=== PATIENT | female | born 1975 | race Caucasian/White ===

== ENCOUNTER 2016-08-27 08:20 | Emergency (ER) | payer MEDICAID ==
[2016-08-27 08:35] VITALS: BP 120/58
--- NOTE | 2016-08-27 09:00 | UC ---
Respiratory Complaint HPI - HPI Summary HPI Summary: cough x 1 day + nasal congestion , no fever, no chills - History of Current Complaint Chief Complaint: UCRespiratory Stated Complaint: COUGH,CHILLS Time Seen by Provider: 08/27/16 08:44 Hx Obtained From: Patient Hx Last Menstrual Period: n/a Onset/Duration: Gradual Onset, Lasting Days - 1, Still Present Timing: Constant Severity Initially: Moderate Severity Currently: Moderate Character: Cough: Nonproductive Aggravating Factors: Exertion, Deep Breaths Alleviating Factors: Nothing Associated Signs And Symptoms: Positive: URI, Nasal Congestion. Negative: Fever , Chills - Allergies/Home Medications Allergies/Adverse Reactions: Allergies Allergy/AdvReac Type Severity Reaction Status Date / Time Tramadol Allergy Severe face Verified 05/31/13 21:46 swelling Aspirin AdvReac Nausea Verified 08/27/16 08:35 Home Medications: Home Medications Acetaminophen [Acetaminophen Extra Stren] 1,000 mg PO Q6H PRN 08/27/16 [History Confirmed 08/27/16] PMH/Surg Hx/FS Hx/Imm Hx Respiratory History Of: Reports: Asthma - Surgical History Surgical History: None - Family History Known Family History: Negative: Diabetes - Social History Alcohol Use: Occasionally Substance Use Type: None Smoking Status (MU): Never Smoked Tobacco Review of Systems Constitutional: Negative Skin: Negative Eyes: Negative ENT: Nasal Discharge Respiratory: Cough Cardiovascular: Negative Gastrointestinal: Negative All Other Systems Reviewed And Are Negative: Yes Physical Exam Triage Information Reviewed: Yes Appearance: Well-Appearing, No Pain Distress, Well-Nourished Vital Signs: Initial Vital Signs Temp 99.9 F 08/27/16 08:28 Pulse 80 08/27/16 08:28 Resp 20 08/27/16 08:28 BP 120/58 08/27/16 08:28 Pulse Ox 98 08/27/16 08:28 Vital Signs Reviewed: Yes Eyes: Positive: Conjunctiva Clear ENT: Positive: Normal ENT inspection, Hearing grossly normal, Nasal congestion, Nasal drainage, TMs normal Neck: Positive: Supple, Nontender, No Lymphadenopathy Respiratory: Positive: Chest non-tender, Lungs clear, Normal breath sounds Cardiovascular: Positive: RRR, No Murmur, Pulses Normal Abdominal Exam: Normal UC Diagnostic Evaluation - Laboratory O2 Sat by Pulse Oximetry: 98 Respiratory Course/Dx - Differential Dx/Diagnosis Provider Diagnoses: URI Discharge - Discharge Plan Condition: Stable Disposition: HOME Patient Education Materials: Upper Respiratory Infection (ED) Forms: *Work Release Referrals: Non Staff,Doctor [Primary Care Provider] - If Needed
== END 2016-08-27 09:05 | disposition home or self-care (01) ==
LOC: UCCORT 08:20
DX: J06.9 Acute upper respiratory infection, unspecified (principal); J45.909 Unspecified asthma, uncomplicated; Z88.6 Allergy status to analgesic agent; Z88.5 Allergy status to narcotic agent
CPT/HCPCS: 99201; G0463

== ENCOUNTER 2017-10-13 09:03 | Emergency (ER) | payer OTHER ==
[2017-10-13 09:33] VITALS: BP 101/70
--- NOTE | 2017-10-13 09:34 | UC ---
Respiratory Complaint HPI - HPI Summary HPI Summary: 42 yo female presents with dry cough and chest congestion for the last 3-4 days. She tells me that she feels like she has had allergies this year as she has had sinus congestion and post nasal drip - started taking zyrtec with good relief. Now feels like it has "settled" in her chest. Denies fever, chills, sore throat, SOB, chest pain, abdominal pain, n/v. - History of Current Complaint Chief Complaint: UCRespiratory Stated Complaint: CONGESTION TIGHTNESS Time Seen by Provider: 10/13/17 09:34 Hx Obtained From: Patient Hx Last Menstrual Period: unknown, mirena iud Onset/Duration: Gradual Onset Severity Currently: None Pain Intensity: 0 Character: Cough: Nonproductive - Allergies/Home Medications Allergies/Adverse Reactions: Allergies Allergy/AdvReac Type Severity Reaction Status Date / Time tramadol Allergy Swelling Verified 10/13/17 09:29 Of Face,Lips,& Throat aspirin AdvReac Nausea Verified 10/13/17 09:29 Home Medications: Home Medications Cetirizine* [ZyrTEC 10 MG TAB*] 10 mg PO DAILY 10/13/17 [History Confirmed 10/13] PMH/Surg Hx/FS Hx/Imm Hx Respiratory History: Asthma - Surgical History Surgical History: None - Family History Known Family History: Negative: Diabetes - Social History Occupation: Employed Full-time Lives: With Family Alcohol Use: Occasionally Substance Use Type: None Smoking Status (MU): Never Smoked Tobacco Review of Systems Constitutional: Negative Skin: Negative Eyes: Negative ENT: Negative Respiratory: Cough Cardiovascular: Negative Gastrointestinal: Negative Neurovascular: Negative Neurological: Negative Psychological: Negative All Other Systems Reviewed And Are Negative: Yes Physical Exam - Summary Physical Exam Summary: GENERAL: NAD. WDWN. No pain distress. SKIN: No rashes, sores, lesions, or open wounds. HEENT: Head: AT/NC Eyes: Conjunctiva clear without inflammation or discharge. Ears: Hearing grossly normal. TMs intact, no bulging, erythema, or edema. Nose: Nasal mucosa pink and moist. NTTP maxillary and frontal sinus. Throat: Posterior oropharynx without exudates, erythema, or tonsillar enlargement. Uvula midline. NECK: Supple. Nontender. No lymphadenopathy. CHEST: Mild wheezing throughout. No r/r. No accessory muscle use. Breathing comfortably and in no distress. CV: RRR. Without m/r/g. Pulses intact. Brisk cap refill. NEURO: Alert. CN II-XII grossly intact. PSYCH: Age appropriate behavior. Triage Information Reviewed: Yes Vital Signs: Initial Vital Signs Temp 97.6 F 10/13/17 09:28 Pulse 59 10/13/17 09:28 Resp 16 10/13/17 09:28 BP 101/70 10/13/17 09:28 Pulse Ox 100 10/13/17 09:28 Diagnostic Evaluation - Laboratory O2 Sat by Pulse Oximetry: 100 Respiratory Course/Dx - Course Course Of Treatment: Bronchitis - Differential Dx/Diagnosis Provider Diagnoses: Bronchitis Discharge - Sign-Out/Discharge Documenting (check all that apply): Discharge/Admit/Transfer - Discharge Plan Condition: Stable Disposition: HOME Prescriptions: Albuterol HFA INHALER* [Ventolin HFA Inhaler*] 1 - 2 puff INH Q6H PRN #1 mdi PRN Reason: Cough predniSONE TAB* [Deltasone TAB*] 50 mg PO DAILY #5 tab Patient Education Materials: Acute Bronchitis (ED) Referrals: No Primary Care Phys,NOPCP [Primary Care Provider] - Additional Instructions: If you develop a fever, shortness of breath, chest pain, new or worsening symptoms - please call your PCP or go to the ED. - Billing Disposition and Condition Condition: STABLE Disposition: Home
== END 2017-10-13 09:44 | disposition home or self-care (01) ==
LOC: UCCORT 09:03
DX: J40 Bronchitis, not specified as acute or chronic (principal); Z88.6 Allergy status to analgesic agent
CPT/HCPCS: 99212; G0463

== ENCOUNTER 2017-10-20 16:39 | Emergency (ER) | payer OTHER ==
[2017-10-20 17:01] VITALS: BP 109/60
--- NOTE | 2017-10-20 17:01 | UC ---
Back Pain HPI - HPI Summary HPI Summary: Patient presents complaining of an ache across her low back for the past 3 days. With this, she notes some frequency and urgency with urination but denies any burning. Patient also notes a little bit of odor to her urine. She has no associated fever or chills or abdominal pain. She denies any associated numbness tingling or weakness to her arms or legs as well as loss of bowel or bladder control. She also denies any saddle anesthesia. she has pressure over her bladder but denies pain. she has had kidney stones but notes this is nothing like that. - History of Current Complaint Hx Obtained From: Patient Hx Last Menstrual Period: unknown, mirena iud Onset/Duration: Gradual Onset Timing: Constant Aggravating Factor(s): Nothing Alleviating Factor(s): Nothing Associated Signs And Symptoms: Negative: Fever, Weakness, Numbness, Tingling, Abdominal Pain, Flank Pain, Bladder Incontinence, Bowel Incontinence - Risk Factors AAA Risk Factors: Negative TAD Risk Factors: Negative Cauda Equina Risk Factors: Negative Epidural Abscess Risk Factors: Negative <Mica Sosa - Last Filed: 10/20/17 16:50> <Theresa Ramirez - Last Filed: 10/20/17 19:35> - History of Current Complaint Stated Complaint: LOWER BACK PAIN Time Seen by Provider: 10/20/17 16:48 - Allergies/Home Medications Allergies/Adverse Reactions: Allergies Allergy/AdvReac Type Severity Reaction Status Date / Time erythromycin base Allergy GI Upset Verified 10/20/17 16:58 tramadol Allergy Swelling Verified 10/13/17 09:29 Of Face,Lips,& Throat aspirin AdvReac Nausea Verified 10/13/17 09:29 PMH/Surg Hx/FS Hx/Imm Hx - Additional Past Medical History Additional PMH: allergies, uti Respiratory History: Asthma, Bronchitis GI/ History: Kidney Stones - Surgical History Surgical History: None - Family History Known Family History: Negative: Diabetes - Social History Occupation: Employed Full-time Lives: With Family Alcohol Use: Occasionally Substance Use Type: None Smoking Status (MU): Never Smoked Tobacco - Immunization History Vaccination Up to Date: Yes <Mica Sosa - Last Filed: 10/20/17 16:50> Review of Systems Constitutional: Negative Skin: Negative Eyes: Negative ENT: Negative Respiratory: Negative Cardiovascular: Negative Gastrointestinal: Negative Genitourinary: Frequency, Urgency Motor: Negative Neurovascular: Negative Musculoskeletal: Other: - low back ache Neurological: Negative Psychological: Negative Is Patient Immunocompromised?: No All Other Systems Reviewed And Are Negative: Yes <Mica Sosa - Last Filed: 10/20/17 16:50> Physical Exam Triage Information Reviewed: Yes Appearance: Well-Appearing Vital Signs Reviewed: Yes Eyes: Positive: Conjunctiva Clear ENT: Positive: Normal ENT inspection Neck: Positive: Supple, Nontender, No Lymphadenopathy Respiratory: Positive: Lungs clear, Normal breath sounds Cardiovascular: Positive: RRR, No Murmur Abdomen Description: Positive: Nontender, No Organomegaly, Soft. Negative: CVA Tenderness (R), CVA Tenderness (L), Distended, Guarding Bowel Sounds: Positive: Present Musculoskeletal: Positive: Other: - Back exam: No gross deformity swelling or discoloration. Cervical, thoracic and lumbar spine are nontender to palpation. Patient has full range range of motion throughout her back and neck without difficulty. She has 5 out of 5 strength and 2+ reflexes 4. No saddle anesthesia. Neurological: Positive: Alert Psychological: Positive: Age Appropriate Behavior Skin Exam: Normal <Mica Sosa - Last Filed: 10/20/17 16:50> Vital Signs: Initial Vital Signs Temp 99.0 F 10/20/17 16:54 Pulse 65 10/20/17 16:54 Resp 15 10/20/17 16:54 BP 109/60 10/20/17 16:54 Pulse Ox 100 10/20/17 16:54 <Theresa Ramirez - Last Filed: 10/20/17 19:35> Diagnostics - Laboratory Diagnostic Studies Completed/Ordered: u/a + for blood and leukocytes and culture is pending. <Mica Sosa - Last Filed: 10/20/17 16:50> Back Pain Course/Dx - Course Course Of Treatment: back exam is unremarkable. u/a + for blood and leukocytes with culture pending. hcg is neg. will tx for uti with close f/u. - Differential Dx/Diagnosis Provider Diagnoses: Low back ache. Urinary urgency/frequency. possible uti. <Mica Sosa - Last Filed: 10/20/17 16:50> Discharge - Sign-Out/Discharge Documenting (check all that apply): Discharge/Admit/Transfer - Billing Disposition and Condition Condition: STABLE Disposition: Home <Mica Sosa - Last Filed: 10/20/17 16:50> - Billing Disposition and Condition Condition: STABLE Disposition: Home <Theresa Ramirze - Last Filed: 10/20/17 19:35> - Discharge Plan Condition: Stable Disposition: HOME Prescriptions: Nitrofurantoin Monohyd/M-Cryst [Macrobid 100 mg Capsule] 100 mg PO BID #10 cap Patient Education Materials: Urinary Tract Infection in Women (ED), Back Pain ( ED) Referrals: [facility] [place] [facility] [Outside] Additional Instructions: call physician referral in am whom will assist you with a f/u pcp. you should be seen in 5 days or sooner if worse. go to ER for worsening. Attestation Statement User Type: Provider - I was available for consult. This patient was seen by the LORRIE. The patient was not presented to, seen by, or examined by me. -Amarij <Theresa Ramirez - Last Filed: 10/20/17 19:35>
--- NOTE | 2017-10-23 10:49 | UC ---
- Progress Note Progress Note: neg culture can stop antibiotics recheck prn Discharge - Sign-Out/Discharge Documenting (check all that apply): Discharge/Admit/Transfer - Discharge Plan Condition: Stable Disposition: HOME Prescriptions: Nitrofurantoin Monohyd/M-Cryst [Macrobid 100 mg Capsule] 100 mg PO BID #10 cap Patient Education Materials: Urinary Tract Infection in Women (ED), Back Pain ( ED) [place]errals: [facility] [place] [facility] [Outside] Additional Instructions: call physician referral in am whom will assist you with a f/u pcp. you should be seen in 5 days or sooner if worse. go to ER for worsening. - Billing Disposition and Condition Condition: STABLE Disposition: Home
== END 2017-10-20 17:38 | disposition home or self-care (01) ==
LOC: UCCORT 16:39
DX: M54.5 Low back pain (principal); R35.0 Frequency of micturition; R39.15 Urgency of urination; Z88.5 Allergy status to narcotic agent; Z88.6 Allergy status to analgesic agent
CPT/HCPCS: 81003; 84702; 87086; 99212; G0463

== ENCOUNTER 2017-12-12 09:57 | Emergency (ER) | payer OTHER ==
[2017-12-12 10:15] VITALS: BP 110/48
[2017-12-12] MEDS ORDERED: Acetaminophen ADULT LIQ* 650 MG/20.3 ML UDC PO ONE (10:21)
--- NOTE | 2017-12-12 10:38 | UC ---
Throat Pain/Nasal Abhijeet HPI - HPI Summary HPI Summary: Pt c/o sudden onset of ST, fever generalized malaise X 1 day. - History of Current Complaint Chief Complaint: UCGeneralIllness Stated Complaint: SORE THROAT Time Seen by Provider: 12/12/17 10:08 Hx Obtained From: Patient Hx Last Menstrual Period: Mirena IUD ?: No Onset/Duration: Sudden Onset Severity: Moderate Pain Intensity: 8 Cough: None Associated Signs & Symptoms: Positive: Dysphagia, Fever - Epiglottits Risk Factors Epiglottis Risk Factors: Sudden Onset - Allergies/Home Medications Allergies/Adverse Reactions: Allergies Allergy/AdvReac Type Severity Reaction Status Date / Time tramadol Allergy Swelling Verified 12/12/17 10:11 Of Face,Lips,& Throat aspirin AdvReac Nausea Verified 12/12/17 10:11 erythromycin base AdvReac Nausea Verified 12/12/17 10:11 Home Medications: Home Medications Levonorgestrel (Iud) [Mirena IUD] 20 mcg IU ONCE 12/12/17 [History Confirmed ] PMH/Surg Hx/FS Hx/Imm Hx Previously Healthy: Yes - Surgical History Surgical History: None - Family History Known Family History: Negative: Diabetes - Social History Occupation: Employed Full-time Lives: With Family Alcohol Use: Occasionally Substance Use Type: None Smoking Status (MU): Never Smoked Tobacco Have You Smoked in the Last Year: No - Immunization History Vaccination Up to Date: Yes Review of Systems Constitutional: Fever, Chills Skin: Negative Eyes: Negative ENT: Sore Throat Respiratory: Negative Cardiovascular: Negative Gastrointestinal: Negative Genitourinary: Negative Motor: Negative Neurovascular: Negative Musculoskeletal: Myalgia Neurological: Headache Psychological: Negative Is Patient Immunocompromised?: No All Other Systems Reviewed And Are Negative: Yes Physical Exam Triage Information Reviewed: Yes Appearance: Ill-Appearing Vital Signs: Initial Vital Signs Temp 99.1 F 12/12/17 10:09 Pulse 83 12/12/17 10:09 Resp 17 12/12/17 10:09 BP 110/48 12/12/17 10:09 Pulse Ox 97 12/12/17 10:09 Vital Signs Reviewed: Yes Eye Exam: Normal ENT: Positive: Tonsillar swelling, Tonsillar exudate Dental Exam: Normal Neck exam: Normal Respiratory Exam: Normal Cardiovascular Exam: Normal Musculoskeletal Exam: Normal Neurological Exam: Normal Psychological Exam: Normal Skin Exam: Normal Diagnostics - Laboratory Diagnostic Studies Completed/Ordered: rapid strep: positive Throat Pain/Nasal Course/Dx - Differential Dx/Diagnosis Differential Diagnosis/HQI/PQRI: Pharyngitis, Tonsillitis Provider Diagnoses: strep throat Discharge - Sign-Out/Discharge Documenting (check all that apply): Patient Departure - Discharge Plan Condition: Stable Disposition: HOME Prescriptions: Amoxicillin PO (*) [Amoxicillin 400 MG/5 ML SUSP*] 7 ml PO Q12H #140 bottle Patient Education Materials: Strep Throat (ED) Referrals: [facility] [place] [facility] [Outside] - If Needed No Primary Care Phys,NOPCP [Primary Care Provider] - - Billing Disposition and Condition Condition: STABLE Disposition: Home
== END 2017-12-12 10:46 | disposition home or self-care (01) ==
LOC: UCCORT 09:57
DX: J02.0 Streptococcal pharyngitis (principal); Z88.1 Allergy status to other antibiotic agents; Z88.6 Allergy status to analgesic agent; Z88.5 Allergy status to narcotic agent
CPT/HCPCS: 87651; 99212; A9270-GY; G0463

== ENCOUNTER 2018-03-09 12:11 | Emergency (ER) | payer OTHER ==
--- NOTE | 2018-03-09 13:45 | UC ---
Respiratory Complaint HPI - HPI Summary HPI Summary: 42 yo female presents with sinus pain/pressure/congestion, post nasal drip, and dry cough for the last 5 days. She tells me that she has a history of asthma and when her "sinuses go to her chest" her symptoms get worse. She has not taken anything OTC. Does have an albuterol inhaler, but has not needed it. Denies fever, chills, sore throat, SOB, chest pain. - History of Current Complaint Stated Complaint: COUGH Time Seen by Provider: 03/09/18 13:44 Hx Obtained From: Patient Hx Last Menstrual Period: Mirena IUD Onset/Duration: Gradual Onset Severity Initially: Moderate Severity Currently: Moderate Pain Intensity: 6 Pain Scale Used: 0-10 Numeric - Allergies/Home Medications Allergies/Adverse Reactions: Allergies Allergy/AdvReac Type Severity Reaction Status Date / Time tramadol Allergy Swelling Verified 03/09/18 14:12 Of Face,Lips,& Throat aspirin AdvReac Nausea Verified 03/09/18 14:12 erythromycin base AdvReac Nausea Verified 03/09/18 14:12 PMH/Surg Hx/FS Hx/Imm Hx - Additional Past Medical History Additional PMH: None - Surgical History Surgical History: None - Family History Known Family History: Negative: Diabetes - Social History Occupation: Employed Full-time Lives: With Family Alcohol Use: Occasionally Substance Use Type: None Smoking Status (MU): Never Smoked Tobacco Have You Smoked in the Last Year: No - Immunization History Vaccination Up to Date: Yes Review of Systems All Other Systems Reviewed And Are Negative: Yes Constitutional: Positive: Negative Skin: Positive: Negative Eyes: Positive: Negative ENT: Positive: Nasal Discharge, Sinus Congestion, Sinus Pain/Tenderness Respiratory: Positive: Cough Cardiovascular: Positive: Negative Gastrointestinal: Positive: Negative Neurovascular: Positive: Negative Neurological: Positive: Negative Psychological: Positive: Negative Physical Exam - Summary Physical Exam Summary: GENERAL: NAD. WDWN. No pain distress. SKIN: No rashes, sores, lesions, or open wounds. HEENT: Head: AT/NC Eyes: Conjunctiva clear without inflammation or discharge. Ears: Hearing grossly normal. TMs intact, no bulging, erythema, or edema. Nose: Nasal mucosa pink and moist. TTP maxillary and frontal sinus. Throat: Posterior oropharynx without exudates, erythema, or tonsillar enlargement. Uvula midline. NECK: Supple. Nontender. No lymphadenopathy. CHEST: Scant wheezing throughout. No r/r. No accessory muscle use. Breathing comfortably and in no distress. CV: RRR. Without m/r/g. Pulses intact. Cap refill <2seconds NEURO: Alert. PSYCH: Age appropriate behavior. Triage Information Reviewed: Yes Vital Signs: Vital Signs: Temp Pulse Resp BP Pulse Ox 97.9 F 59 18 118/65 100 03/09/18 14:10 03/09/18 14:10 03/09/18 14:10 03/09/18 14:10 03/09/18 14:10 Vital Signs Reviewed: Yes Respiratory Course/Dx - Course Course Of Treatment: Sinusitis and mild bronchitis. She has had zpak in the past with good results. Will rx for albuterol, tessalon, and zpak. - Differential Dx/Diagnosis Provider Diagnoses: Sinusitis. Bronchitis Discharge - Sign-Out/Discharge Documenting (check all that apply): Patient Departure All imaging exams completed and their final reports reviewed: No Studies - Discharge Plan Condition: Stable Disposition: HOME Prescriptions: Albuterol HFA INHALER* [Ventolin HFA Inhaler*] 1 - 2 puff INH Q6H PRN #1 mdi PRN Reason: Sob/Wheezing Azithromycin TAB* [Zithromax TAB (Z-JOHN) 250 mg #6 tabs] 2 tab PO .TODAY, THEN 1 DAILY #1 john Benzonatate CAP* [Tessalon 100 MG CAP*] 100 mg PO TID PRN #21 cap PRN Reason: Cough Patient Education Materials: Sinusitis (ED), Acute Bronchitis (ED) Forms: *Work Release Referrals: No Primary Care Phys,NOPCP [Primary Care Provider] - Additional Instructions: If you develop a fever, shortness of breath, chest pain, new or worsening symptoms - please call your PCP or go to the ED. Your blood pressure was high at todays visit. Please see your primary provider within 4 weeks for recheck and re-evaluation. - Billing Disposition and Condition Condition: STABLE Disposition: Home
--- NOTE | 2018-03-09 13:49 | UC ---
UC General HPI - History of Current Complaint Stated Complaint: COUGH Time Seen by Provider: 03/09/18 13:44 Hx Last Menstrual Period: Mirena IUD - Allergy/Home Medications Allergies/Adverse Reactions: Allergies Allergy/AdvReac Type Severity Reaction Status Date / Time tramadol Allergy Swelling Verified 12/12/17 10:11 Of Face,Lips,& Throat aspirin AdvReac Nausea Verified 12/12/17 10:11 erythromycin base AdvReac Nausea Verified 12/12/17 10:11 PMH/Surg Hx/FS Hx/Imm Hx - Surgical History Surgical History: None - Family History Known Family History: Negative: Diabetes - Social History Alcohol Use: Occasionally Substance Use Type: None Smoking Status (MU): Never Smoked Tobacco Have You Smoked in the Last Year: No - Immunization History Vaccination Up to Date: Yes Discharge - Discharge Plan Referrals: No Primary Care Phys,NOPCP [Primary Care Provider] -
[2018-03-09 14:12] VITALS: BP 118/65
== END 2018-03-09 14:14 | disposition home or self-care (01) ==
LOC: UCCORT 12:11
DX: J32.9 Chronic sinusitis, unspecified (principal); J40 Bronchitis, not specified as acute or chronic; Z88.1 Allergy status to other antibiotic agents; Z88.6 Allergy status to analgesic agent; Z88.5 Allergy status to narcotic agent
CPT/HCPCS: 99212; G0463

== ENCOUNTER 2018-04-27 09:36 | Emergency (ER) | payer OTHER ==
[2018-04-27 10:11] VITALS: BP 110/60
--- NOTE | 2018-04-27 11:11 | UC ---
Throat Pain/Nasal Abhijeet HPI - HPI Summary HPI Summary: Patient presents to urgent care reporting sore throat. Patient states it started this morning. Patient states yesterday she had some nasal congestion ear fullness and upper back achiness. Patient has not taken any medications. Patient states that her son had nasal congestion and cough earlier this week. Patient is not inial, otherwise. Patient without any fevers or chills. Patient 's been drinking fluids but decreased appetite. No other complaints. Patient' s medications reviewed this visit. Patient states she is not . Medications reviewed this visit - History of Current Complaint Chief Complaint: UCGeneralIllness Stated Complaint: SORE THROAT Time Seen by Provider: 04/27/18 11:09 Hx Obtained From: Patient Hx Last Menstrual Period: unknown, mirena ?: No Onset/Duration: Gradual Onset Pain Intensity: 5 Pain Scale Used: 0-10 Numeric - Allergies/Home Medications Allergies/Adverse Reactions: Allergies Allergy/AdvReac Type Severity Reaction Status Date / Time tramadol Allergy Swelling Verified 03/09/18 14:12 Of Face,Lips,& Throat aspirin AdvReac Nausea Verified 03/09/18 14:12 erythromycin base AdvReac Nausea Verified 03/09/18 14:12 PMH/Surg Hx/FS Hx/Imm Hx Previously Healthy: Yes - Surgical History Surgical History: None - Family History Known Family History: Positive: Non-Contributory Negative: Diabetes - Social History Lives: With Family Alcohol Use: Occasionally Substance Use Type: None Smoking Status (MU): Never Smoked Tobacco Have You Smoked in the Last Year: No - Immunization History Vaccination Up to Date: Yes Review of Systems All Other Systems Reviewed And Are Negative: Yes Constitutional: Positive: Negative Skin: Positive: Negative ENT: Positive: Nasal Discharge, Sinus Congestion Respiratory: Positive: Negative Cardiovascular: Positive: Negative Gastrointestinal: Positive: Negative Genitourinary: Positive: Negative Physical Exam - Summary Physical Exam Summary: Vital Signs Reviewed: Yes A+Ox3, no distress Eyes: Conjunctiva Clear, AIDEN. EOM intact and full ENT: mild fluid b/l TM x 2 clear, turbinates inflammed, + PND, no exudate. mmoist, uvula midline, no exudate, mild erythema Neck: Positive: Supple Respiratory: Positive: No respiratory distress, No accessory muscle use + CTA throughout no w/r Cardiovascular: RRR nl s1, s2 no m/r CBT <2 sec abd soft + BS nt/nd no guarding, no distension Musculoskeletal Exam: EDMONDSON x 4 without difficulty Strength Intact, ROM Intact Neurological: Positive: Alert, + sensation throughout Psychological: Positive: Normal Response To Family Skin: Positive: no rash, no ecchymosis Triage Information Reviewed: Yes Vital Signs: Initial Vital Signs Temp 98 F 04/27/18 10:06 Pulse 58 04/27/18 10:06 Resp 14 04/27/18 10:06 BP 110/60 04/27/18 10:06 Pulse Ox 99 04/27/18 10:06 Throat Pain/Nasal Course/Dx - Course Course Of Treatment: Patient presents with sore throat that she woke up with this morning. Patient concerned she has strep with checked. Patient has some mild body aches ear fullness and sinus congestion since yesterday. Patient has not taken any [id number] products for antipyretics. Patient states her son had a URI this week. On exam, patient well-appearing was stable vital signs. Patient with some mild fluid her TMs boggy turbinates and postnasal drip. Patient strep is negative. Reviewed with patient's symptomatic treatment , gargle warm salt water. He'll air. Secretion precaution. Return precaution. Patient comfortable in agreement with plan. - Differential Dx/Diagnosis Provider Diagnosis: Pharyngitis Discharge - Sign-Out/Discharge Documenting (check all that apply): Patient Departure All imaging exams completed and their final reports reviewed: No Studies - Discharge Plan Condition: Stable Disposition: HOME Prescriptions: Fluticasone NASAL SPRAY 50MCG* [Flonase NASAL SPRAY 50MCG*] 2 spray BOTH NARES DAILY #1 btl Patient Education Materials: Pharyngitis (ED) Referrals: No Primary Care Phys,NOPCP [Primary Care Provider] - Additional Instructions: - Okay to alternate ibuprofen (Advil, Motrin)600mg and Tylenol 1000mg every 3 hours for pain. Take with food. Do NOT take for more than 4-5 days - Okay to gargle and spit warm salt water every 4 hours for discomfort - Stay well hydrated - frequent sips of cold fluids will be soothing to your throat (popsicles, jello, ice cream, ice water). Avoid excess caffeine until your symptoms have resolved. -Throat infections are spread by oral secretions - do not share eating or drinking utensils until you symptoms are resolved. Clean items that may get your secretions such as cell phones, ipads, computer mouse, television remotes. Once you start to feel better, change your toothbrush and your pillowcase. - use nasal spray as prescribed - humidify the air in the room where you sleep - boil water, run a hot steam shower, vaporizer, cups of water by heat register - Okay to take over the counter cough and decongestant medication - Contact your doctor to arrange a follow-up appointment as needed - Billing Disposition and Condition Condition: STABLE Disposition: Home
== END 2018-04-27 11:26 | disposition home or self-care (01) ==
LOC: UCCORT 09:36
DX: J02.9 Acute pharyngitis, unspecified (principal); Z88.5 Allergy status to narcotic agent; Z88.6 Allergy status to analgesic agent; Z88.1 Allergy status to other antibiotic agents
CPT/HCPCS: 87651; 99212; G0463

== ENCOUNTER 2018-10-08 07:48 | Emergency (ER) | payer OTHER ==
[2018-10-08 08:04] VITALS: BP 108/50
--- NOTE | 2018-10-08 08:16 | UC ---
Throat Pain/Nasal Abhijeet HPI - HPI Summary HPI Summary: sinus pain and pressure x 2 weeks nasal drainage, yellow/ green discharge, post nasal drip, sore throat dry cough + fever and chills + body aches, not getting better with otc meds, - History of Current Complaint Chief Complaint: UCGeneralIllness Stated Complaint: CONGESTION,COUGH Time Seen by Provider: 10/08/18 08:08 Hx Obtained From: Patient Hx Last Menstrual Period: IUD ?: No Onset/Duration: Gradual Onset, Lasting Weeks - 2, Still Present Severity: Moderate Pain Intensity: 0 Cough: Nonproductive Associated Signs & Symptoms: Positive: Sinus Discomfort, Nasal Discharge, Fever. Negative: Dysphagia, FB Sensation, Drooling, Wheezing, Hoarseness, Vomiting, Rash - Allergies/Home Medications Allergies/Adverse Reactions: Allergies Allergy/AdvReac Type Severity Reaction Status Date / Time tramadol Allergy Swelling Verified 03/09/18 14:12 Of Face,Lips,& Throat aspirin AdvReac Nausea Verified 03/09/18 14:12 erythromycin base AdvReac Nausea Verified 03/09/18 14:12 Home Medications: Home Medications Albuterol HFA INHALER* [Ventolin HFA Inhaler*] 1 puff INH Q4H PRN 10/08/18 [ History Confirmed 10/08/18] Cetirizine* [ZyrTEC 10 MG TAB*] 10 mg PO DAILY 10/08/18 [History Confirmed 10/08] Oxymetazoline 0.05% NASAL SPR* [Afrin 0.05% NASAL SPRAY*] 1 spray NASAL Q12H PRN 10/08/18 [History Confirmed 10/08/18] PMH/Surg Hx/FS Hx/Imm Hx - Additional Past Medical History Additional PMH: Kidney Stones, Pyelonephritis Respiratory History: Asthma - Surgical History Surgical History: None - Family History Known Family History: Positive: Non-Contributory Negative: Diabetes - Social History Alcohol Use: Occasionally Substance Use Type: None Smoking Status (MU): Never Smoked Tobacco Have You Smoked in the Last Year: No - Immunization History Vaccination Up to Date: Yes Review of Systems All Other Systems Reviewed And Are Negative: Yes Constitutional: Positive: Fever, Chills, Fatigue Skin: Positive: Negative Eyes: Positive: Negative ENT: Positive: Sore Throat, Ear Ache, Nasal Discharge, Sinus Congestion, Sinus Pain/Tenderness Respiratory: Positive: Cough Cardiovascular: Positive: Negative Gastrointestinal: Positive: Negative Is Patient Immunocompromised?: No Physical Exam Triage Information Reviewed: Yes Appearance: Well-Appearing, No Pain Distress, Well-Nourished Vital Signs: Initial Vital Signs Temp 97.8 F 10/08/18 07:59 Pulse 57 10/08/18 07:59 Resp 16 10/08/18 07:59 BP 108/50 10/08/18 07:59 Pulse Ox 100 10/08/18 07:59 Vital Signs Reviewed: Yes Eye Exam: Normal Eyes: Positive: Conjunctiva Clear ENT: Positive: Normal ENT inspection, Hearing grossly normal, Pharynx normal, Nasal congestion, Nasal drainage, TMs normal, Sinus tenderness. Negative: TM bulging, TM dull, TM red, Tonsillar swelling, Tonsillar exudate Neck: Positive: Supple, Nontender, No Lymphadenopathy Respiratory: Positive: Chest non-tender, Lungs clear, Normal breath sounds Cardiovascular: Positive: RRR, No Murmur, Pulses Normal Skin Exam: Normal Throat Pain/Nasal Course/Dx - Differential Dx/Diagnosis Provider Diagnosis: Sinusitis Discharge - Sign-Out/Discharge Documenting (check all that apply): Patient Departure All imaging exams completed and their final reports reviewed: No Studies - Discharge Plan Condition: Stable Disposition: HOME Prescriptions: Amoxicillin/Clavulanate TAB* [Augmentin TAB 875*] 875 mg PO BID #20 tab Patient Education Materials: Sinusitis (ED) Referrals: No Primary Care Phys,NOPCP [Primary Care Provider] - If Needed - Billing Disposition and Condition Condition: STABLE Disposition: Home
== END 2018-10-08 08:27 | disposition home or self-care (01) ==
LOC: UCCORT 07:48
DX: J32.9 Chronic sinusitis, unspecified (principal); J45.909 Unspecified asthma, uncomplicated; Z87.442 Personal history of urinary calculi
CPT/HCPCS: 99212; G0463

== ENCOUNTER 2019-06-02 11:05 | Emergency (ER) | payer SELFPAY ==
[2019-06-02 11:27] VITALS: BP 122/71
--- NOTE | 2019-06-02 11:39 | UC ---
Cardiac HPI - HPI Summary HPI Summary: Pt presents with c/o sudden onset of right upper anterior chest pain after hearing and feeling a pop in right upper anterior chest. Then sudden onset of lissa with deep breathing, and shoulder movement. Pt statesd this happened at work "earlier this morning". Pt denies chest pain with exertion, c/o pain radiating to mid back with right shoulder movement. - History of Current Complaint Chief Complaint: UCUpperExtremity Stated Complaint: POSS PULLED MUC. IN CHEST Time Seen by Provider: 06/02/19 11:20 Hx Obtained From: Patient Hx Last Menstrual Period: Mirena IUD Onset/Duration: Sudden Onset, Lasting Hours, Still Present Timing: Constant Initial Severity: Moderate Current Severity: Moderate Pain Intensity: 8 Chest Pain Location: Upper Sternal, Right Anterior Aggravating Factor(s): Movement - right shoulder movement Alleviating Factor(s): Rest, Position Associated Signs & Symptoms: Positive: Chest Pain, Back Pain - Risk Factors Pulmonary Embolism Risk Factors: Negative - has IUD Cardiac Risk Factors: Negative Atrial Fibrillation: Negative TAD Risk Factors: Negative - Allergy/Home Medications Allergies/Adverse Reactions: Allergies Allergy/AdvReac Type Severity Reaction Status Date / Time tramadol Allergy Swelling Verified 06/02/19 11:23 Of Face,Lips,& Throat aspirin AdvReac Nausea Verified 06/02/19 11:23 erythromycin base AdvReac Nausea Verified 06/02/19 11:23 Home Medications: Home Medications Acetaminophen [Acetaminophen Extra Strength] 500 mg PO ONCE 06/02/19 [History Confirmed 06/02/19] PMH/Surg Hx/FS Hx/Imm Hx Previously Healthy: Yes - Surgical History Surgical History: None - Family History Known Family History: Positive: Cardiac Disease, Non-Contributory Negative: Diabetes - Social History Occupation: Employed Full-time Lives: With Family Alcohol Use: Occasionally Substance Use Type: None Smoking Status (MU): Never Smoked Tobacco Have You Smoked in the Last Year: No - Immunization History Vaccination Up to Date: Yes Review of Systems All Other Systems Reviewed And Are Negative: Yes Constitutional: Positive: Negative Skin: Positive: Negative Eyes: Positive: Negative ENT: Positive: Negative Respiratory: Positive: Negative Cardiovascular: Positive: Negative Gastrointestinal: Positive: Negative Genitourinary: Positive: Negative Motor: Positive: Decreased ROM - pain wiht right shoulder pain Musculoskeletal: Positive: Myalgia - right anterior upper chest wall Neurological: Positive: Negative Psychological: Positive: Negative Is Patient Immunocompromised?: No Physical Exam Triage Information Reviewed: Yes Appearance: Pain Distress - with right shoulder movement and reproducible pain with palpation Vital Signs: Initial Vital Signs Temp 98.4 F 06/02/19 11:21 Pulse 68 06/02/19 11:21 Resp 24 06/02/19 11:21 BP 122/71 06/02/19 11:21 Pulse Ox 99 06/02/19 11:21 Vital Signs Reviewed: Yes Eye Exam: Normal ENT Exam: Normal Dental Exam: Normal Neck exam: Normal Respiratory Exam: Normal Respiratory: Positive: Normal breath sounds, No respiratory distress Cardiovascular Exam: Normal Cardiovascular: Positive: RRR, No Murmur Musculoskeletal: Positive: ROM Intact - c/o pain with ROM of right shoulder, Other: - c/o of pain with palpation of right anterior chest wall. Neurological Exam: Normal Psychological Exam: Normal Skin Exam: Normal - Assessment/Plan Course Of Treatment: right anterior chest wall slight swollen, no hard mass appreciated, c/o pain with palpation of upper anterior chest wall. - Differential Diagnoses - Chest Pain Differential Diagnosis/HQI/PQRI: ACS - Differential Diagnoses - Palpitations Differential Diagnosis/HQI/PQRI: Pulmonary Embolism - Clinical Impression Provider Diagnosis: Acute chest wall pain, Pectoralis muscle strain Discharge ED - Sign-Out/Discharge Documenting (check all that apply): Patient Departure All imaging exams completed and their final reports reviewed: No Studies - Discharge Plan Condition: Stable Disposition: HOME Prescriptions: Cyclobenzaprine TAB* [Flexeril 10 MG TAB*] 10 mg PO Q8H PRN #15 tab PRN Reason: Pain - Mild predniSONE [Prednisone 20 MG TAB] 60 mg PO DAILY #12 tablet Patient Education Materials: Muscle Strain (ED), Muscle Spasm (ED), Chest Wall Pain (ED) Forms: *Work Release Referrals: [facility] [place] [facility] [Outside] - If Needed Kayleen Conn MD [Medical Doctor] - No Primary Care Phys,NOPCP [Primary Care Provider] - - Billing Disposition and Condition Condition: STABLE Disposition: Home
== END 2019-06-02 11:49 | disposition home or self-care (01) ==
LOC: UCCORT 11:05
DX: R07.89 Other chest pain (principal); S29.011A Strain of muscle and tendon of front wall of thorax, initial encounter; Z88.5 Allergy status to narcotic agent; Z88.6 Allergy status to analgesic agent; Z88.0 Allergy status to penicillin; X58.XXXA Exposure to other specified factors, initial encounter; Y92.9 Unspecified place or not applicable; Y99.0 Civilian activity done for income or pay
CPT/HCPCS: 99212; G0463